=== PATIENT | female | born 1950 | race Caucasian/White ===

== ENCOUNTER → 2018-03-07 11:12 | Outpatient (CLI) | payer MEDICARE, OTHER, SELFPAY ==
[2018-03-07 12:11] LABS: Absolute Neutrophil Count 2.5 X10^3/uL (2.0-7.7); Basophil# 0.06 X10^3/uL; Basophil% 1.5 % (0-1); Eosinophil# 0.12 X10^3/uL; Eosinophils% 3.1 % (0-5); Hematocrit 39.9 % (37-47); Hemoglobin 12.7 g/dl (12.0-15.0); Lymphocyte % 23.1 % (19-41); Mean Corp Hgb Conc 31.8 g/gl (32-36); Mean Corpuscular Hgb 27.9 pg (27.0-32.0); Mean Corpuscular Volume 87.7 fL (81-99); Mean Platelet Vol. 11.2 fl (6.2-12.0); Monocyte# 0.32 X10^3/uL; Monocyte% 8.2 % (0-10); Neutrophil # 2.48 X10^3/uL (2.7-7.7); Neutrophil % 63.8 % (47-70); Platelet Count 308 K/mm3 (150-450); RBC Distribution Width CV 16.9 % (11.6-14.6); Red Blood Count 4.55 M/mm3 (4.2-5.4); White Blood Count 3.9 K/mm3 (4.4-11.0)
[2018-03-07 12:13] LABS: POSITIVE COUNT NO; POSITIVE DIFFERENTIAL NO; POSITIVE MORPHOLOGY NO
[2018-03-07 12:49] LABS: ALB/GLOB Ratio 0.9 RATIO (0.9-2.4); AST(SGOT) 18 U/L (15-37); Alanine Aminotransfer ALT/SGPT 19 U/L (13-56); Albumin, Serum 3.7 g/dL (3.2-5.0); Alkaline Phosphatase 75 U/L (45-117); Anion Gap 12 (5-15); BUN 12 mg/dL (7-18); Calcium,Total 8.5 mg/dL (8.5-10.1); Chloride 109 mmol/L (98-107); Creatinine, Serum 1.09 mg/dL (0.55-1.02); EST Glomerular Filtration Rate 53 mL/min (>60); Est Glom Filt Rate - Afr Amer 64 mL/min (>60); Glucose 154 mg/dL (74-106); Potassium 4.3 mmol/L (3.5-5.1); Protein, Total 7.7 g/dL (6.4-8.2); Sodium Level 142 mmol/L (136-145)
== END ==
PROVIDERS: Family Provider Family Medicine; PCP Family Medicine; Visit Provider Internal Medicine Rheumatology
DX: M06.4 Inflammatory polyarthropathy (principal); M35.1 Other overlap syndromes; M25.551 Pain in right hip; M18.12 Unilateral primary osteoarthritis of first carpometacarpal joint, left hand; M17.0 Bilateral primary osteoarthritis of knee; M21.40 Flat foot [pes planus] (acquired), unspecified foot; K21.9 Gastro-esophageal reflux disease without esophagitis; I10 Essential (primary) hypertension; F41.9 Anxiety disorder, unspecified; E03.9 Hypothyroidism, unspecified; M18.9 Osteoarthritis of first carpometacarpal joint, unspecified; Z79.899 Other long term (current) drug therapy
CPT/HCPCS: 36415; 80053; 85025

== ENCOUNTER → 2018-06-13 13:26 | Outpatient (CLI) | payer MEDICARE, OTHER, SELFPAY ==
[2018-06-13 15:49] LABS: ALB/GLOB Ratio 1.1 RATIO (0.9-2.4); AST(SGOT) 24 U/L (15-37); Alanine Aminotransfer ALT/SGPT 29 U/L (13-56); Albumin, Serum 3.9 g/dL (3.2-5.0); Alkaline Phosphatase 73 U/L (45-117); Anion Gap 10 (5-15); BUN 17 mg/dL (7-18); BUN/Creat Ratio 14.4 RATIO (10-20); Calcium,Total 9.1 mg/dL (8.5-10.1); Chloride 107 mmol/L (98-107); Creatinine, Serum 1.18 mg/dL (0.55-1.02); EST Glomerular Filtration Rate 48 mL/min (>60); Est Glom Filt Rate - Afr Amer 58 mL/min (>60); Globulin 3.5 g/dL (2.2-4.2); Glucose 129 mg/dL (74-106); Potassium 4.3 mmol/L (3.5-5.1); Protein, Total 7.4 g/dL (6.4-8.2); Sodium Level 142 mmol/L (136-145)
[2018-06-13 18:06] LABS: Absolute Lymphocyte Count 1.27 X10^3/ul (0.83-4.51); Absolute Neutrophil Count 3.3 X10^3/uL (2.0-7.7); Basophil# 0.05 X10^3/uL; Basophil% 0.9 % (0-1); Eosinophil# 0.21 X10^3/uL; Eosinophils% 3.8 % (0-5); Hematocrit 37.8 % (37-47); Hemoglobin 12.3 g/dl (12.0-15.0); Lymphocyte # 1.27 X10^3/ul (4.0); Lymphocyte % 22.7 % (19-41); Mean Corp Hgb Conc 32.5 g/gl (32-36); Mean Corpuscular Volume 89.2 fL (81-99); Mean Platelet Vol. 12.1 fl (6.2-12.0); Monocyte# 0.73 X10^3/uL; Neutrophil # 3.33 X10^3/uL (2.7-7.7); Neutrophil % 59.4 % (47-70); Platelet Count 309 K/mm3 (150-450); RBC Distribution Width CV 17.7 % (11.6-14.6); RBC Distribution Width SD 57.1 fl (35.1-43.9); Red Blood Count 4.24 M/mm3 (4.2-5.4); White Blood Count 5.6 K/mm3 (4.4-11.0)
[2018-06-13 18:08] LABS: POSITIVE COUNT NO; POSITIVE DIFFERENTIAL NO; POSITIVE MORPHOLOGY NO
== END ==
PROVIDERS: Family Provider Family Medicine; PCP Family Medicine; Visit Provider Internal Medicine Rheumatology
DX: M06.4 Inflammatory polyarthropathy (principal); M35.1 Other overlap syndromes; M18.12 Unilateral primary osteoarthritis of first carpometacarpal joint, left hand; M17.0 Bilateral primary osteoarthritis of knee; M21.40 Flat foot [pes planus] (acquired), unspecified foot; K21.9 Gastro-esophageal reflux disease without esophagitis; I10 Essential (primary) hypertension; F41.9 Anxiety disorder, unspecified; E03.9 Hypothyroidism, unspecified; I48.92 Unspecified atrial flutter; M18.9 Osteoarthritis of first carpometacarpal joint, unspecified; Z79.899 Other long term (current) drug therapy
CPT/HCPCS: 36415; 80053; 85025

== ENCOUNTER → 2018-08-10 09:57 | Outpatient (CLI) | payer MEDICARE, OTHER, SELFPAY ==
[2018-08-10 11:43] LABS: Absolute Neutrophil Count 3.9 X10^3/uL (2.0-7.7); Basophil# 0.03 X10^3/uL; Basophil% 0.5 % (0-1); Eosinophil# 0.27 X10^3/uL; Eosinophils% 4.7 % (0-5); Hematocrit 40.5 % (37-47); Hemoglobin 12.8 g/dl (12.0-15.0); Lymphocyte % 17.6 % (19-41); Mean Corp Hgb Conc 31.6 g/gl (32-36); Mean Corpuscular Volume 91.8 fL (81-99); Mean Platelet Vol. 11.1 fl (6.2-12.0); Monocyte# 0.49 X10^3/uL; Monocyte% 8.6 % (0-10); Neutrophil # 3.89 X10^3/uL (2.7-7.7); Neutrophil % 68.4 % (47-70); Platelet Count 244 K/mm3 (150-450); RBC Distribution Width CV 16.1 % (11.6-14.6); RBC Distribution Width SD 53.9 fl (35.1-43.9); Red Blood Count 4.41 M/mm3 (4.2-5.4); White Blood Count 5.7 K/mm3 (4.4-11.0)
[2018-08-10 11:44] LABS: POSITIVE COUNT NO; POSITIVE DIFFERENTIAL NO; POSITIVE MORPHOLOGY NO
[2018-08-10 12:00] LABS: ALB/GLOB Ratio 0.9 RATIO (0.9-2.4); AST(SGOT) 11 U/L (15-37); Alanine Aminotransfer ALT/SGPT 20 U/L (13-56); Albumin, Serum 3.5 g/dL (3.2-5.0); Alkaline Phosphatase 67 U/L (45-117); Anion Gap 11 (5-15); BUN 16 mg/dL (7-18); BUN/Creat Ratio 14.8 RATIO (10-20); Calcium,Total 8.9 mg/dL (8.5-10.1); Chloride 106 mmol/L (98-107); Creatinine, Serum 1.08 mg/dL (0.55-1.02); EST Glomerular Filtration Rate 53 mL/min (>60); Est Glom Filt Rate - Afr Amer 65 mL/min (>60); Globulin 3.7 g/dL (2.2-4.2); Glucose 154 mg/dL (74-106); Potassium 3.9 mmol/L (3.5-5.1); Protein, Total 7.2 g/dL (6.4-8.2); Sodium Level 139 mmol/L (136-145)
== END ==
PROVIDERS: Family Provider Family Medicine; PCP Family Medicine; Visit Provider Internal Medicine Rheumatology
DX: M06.4 Inflammatory polyarthropathy (principal); M35.1 Other overlap syndromes; M18.12 Unilateral primary osteoarthritis of first carpometacarpal joint, left hand; M17.0 Bilateral primary osteoarthritis of knee; M21.40 Flat foot [pes planus] (acquired), unspecified foot; K21.9 Gastro-esophageal reflux disease without esophagitis; I10 Essential (primary) hypertension; F41.9 Anxiety disorder, unspecified; E03.9 Hypothyroidism, unspecified; I48.92 Unspecified atrial flutter; M18.9 Osteoarthritis of first carpometacarpal joint, unspecified; Z79.899 Other long term (current) drug therapy
CPT/HCPCS: 36415; 80053; 85025

== ENCOUNTER → 2018-11-09 11:03 | Outpatient (CLI) | payer MEDICARE, OTHER, SELFPAY ==
[2018-11-09 11:55] LABS: Absolute Lymphocyte Count 1.14 X10^3/ul (0.83-4.51); Absolute Neutrophil Count 5.7 X10^3/uL (2.0-7.7); Basophil# 0.08 X10^3/uL; Eosinophil# 0.25 X10^3/uL; Eosinophils% 3.1 % (0-5); Hematocrit 42.3 % (37-47); Hemoglobin 13.9 g/dl (12.0-15.0); Lymphocyte # 1.14 X10^3/ul (4.0); Lymphocyte % 14.1 % (19-41); Mean Corp Hgb Conc 32.9 g/gl (32-36); Mean Corpuscular Hgb 30.8 pg (27.0-32.0); Mean Corpuscular Volume 93.6 fL (81-99); Mean Platelet Vol. 10.9 fl (6.2-12.0); Monocyte# 0.91 X10^3/uL; Monocyte% 11.3 % (0-10); Neutrophil # 5.69 X10^3/uL (2.7-7.7); Neutrophil % 70.4 % (47-70); Platelet Count 285 K/mm3 (150-450); RBC Distribution Width SD 50.1 fl (35.1-43.9); Red Blood Count 4.52 M/mm3 (4.2-5.4); White Blood Count 8.1 K/mm3 (4.4-11.0)
[2018-11-09 12:00] LABS: POSITIVE COUNT NO; POSITIVE DIFFERENTIAL NO; POSITIVE MORPHOLOGY NO
[2018-11-09 12:23] LABS: AST(SGOT) 11 U/L (15-37); Alanine Aminotransfer ALT/SGPT 19 U/L (13-56); Albumin, Serum 3.7 g/dL (3.2-5.0); Alkaline Phosphatase 69 U/L (45-117); Anion Gap 8 (5-15); BUN 14 mg/dL (7-18); BUN/Creat Ratio 13.9 RATIO (10-20); Calcium,Total 9.1 mg/dL (8.5-10.1); Chloride 106 mmol/L (98-107); Creatinine, Serum 1.01 mg/dL (0.55-1.02); EST Glomerular Filtration Rate 58 mL/min (>60); Est Glom Filt Rate - Afr Amer 70 mL/min (>60); Globulin 3.8 g/dL (2.2-4.2); Glucose 83 mg/dL (74-106); Potassium 4.6 mmol/L (3.5-5.1); Protein, Total 7.5 g/dL (6.4-8.2); Sodium Level 142 mmol/L (136-145)
--- OUTSIDE RECORDS SUMMARY | 2018-12-26 13:58 | XMS RPT_ITS ---
:1950 Author Organization OHIP Support Name Relationship Address Phone LORENZO WANDA Unavailable Unavailable + [place], [place] R Unavailable Unavailable Unavailable CHERRIE CHAVEZ Unavailable [address] + [place] [address] Helen Lagunas Unavailable Unavailable + Cherrie Chavez Unavailable Unavailable + LORENZO, WANDA Unavailable Unavailable + [place], [place] R Unavailable Unavailable Unavailable CHERRIE CHAVEZ Unavailable [address] + [place] [address] ARHER, WANDA Unavailable Unavailable + ARHER, WANDA Unavailable Unavailable Unavailable ARHER, WANDA Unavailable Unavailable + ARHER, WANDA Unavailable Unavailable + ARHER, WANDA Unavailable Unavailable Unavailable ARHER, WANDA Unavailable Unavailable + LORENZO, WANDA Unavailable . + [place], [place] . R Unavailable Unavailable Unavailable CHERRIE CHAVEZ Unavailable [address] + [place] [address] LORENZO, WANDA Unavailable . + [place], [place] . R Unavailable Unavailable Unavailable CHERRIE CHAVEZ Unavailable [address] + [place] [address] ARHER, WANDA Unavailable Unavailable + ARHER, WANDA Unavailable Unavailable Unavailable ARHER, WANDA Unavailable Unavailable + Care Team Providers Name Role Phone Patricia Dent Attending Unavailable Patricia Dent Referring Unavailable Rakesh Garzon Primary Care Unavailable Patricia Dent Attending Unavailable Vellanki, Patricia Referring Unavailable Bob, Rakesh Primary Care Unavailable Vellanki, Patricia Attending Unavailable Vellanbeata, Patricia Referring Unavailable Surprice, Rakesh Primary Care Unavailable Vellanki, Patricia Attending Unavailable Vellanki, Patricia Referring Unavailable Bob, Rakesh Primary Care Unavailable MAIKOL HERRERA Attending Unavailable Bob, Rakesh Attending Unavailable Surprice, Rakesh Referring Unavailable Surprice, Rakesh Primary Care Unavailable KORIN CHILD, SVEN Attending Unavailable SURPRICE, RAKESH Primary Care Unavailable KORIN CHILD, SVEN Attending Unavailable SURPRICE, RAKESH Primary Care Unavailable KORIN CHILD, SVEN Attending Unavailable SURPRICE, RAKESH Primary Care Unavailable PROBLEMS PROBLEMS DATE TYPE CONDITION / CODE ATTENDING STATUS SOURCE 11/09/2018 Unknown M06.4 - Inflammatory Vellanki, Active [place] polyarthropathy / [facility] M06.4(ICD-10) Hospital Repository 11/09/2018 Unknown Z79.899 - Other long Vellanki, Active [place] term (current) drug [facility] therapy / Hospital Z79.899(ICD-10) Repository 11/09/2018 Unknown 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, 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 / [facility] M35.1(ICD-10) Hospital Repository 11/09/2018 Unknown M18.12 - Unilateral Vellanki, Active [place] primary [facility] osteoarthritis of Hospital first Repository carpometacarpal joint, left hand / M18.12(ICD-10) 11/09/2018 Unknown M15.9 - Vellanki, Active [place] Polyosteoarthritis, [facility] unspecified / Hospital M15.9(ICD-10) Repository 11/09/2018 Unknown M17.0 - Bilateral Vellanki, Active [place] primary [facility] osteoarthritis of Hospital knee / M17.0(ICD-10) Repository 11/09/2018 Unknown M21.40 - Flat foot Vellanki, Active [place] [pes planus] [facility] (acquired), Hospital unspecified foot / Repository M21.40(ICD-10) 11/09/2018 Unknown K21.9 - Vellanki, Active [place] Gastro-esophageal [facility] reflux disease Hospital without esophagitis Repository / K21.9(ICD-10) 11/09/2018 Unknown I10 - Essential Vellanki, Active [place] (primary) [facility] hypertension / Hospital I10(ICD-10) Repository 09/05/2018 Admitting Encntr screen Rakesh Garzon [facility] Crunched Diagnosis mammogram for System malignant neoplasm Repository of breast / Z12.31(ICD-10) 09/05/2018 Admitting Asymptomatic Rakesh Garzon [facility] Diagnosis menopausal state / System Z78.0(ICD-10) Repository 06/13/2018 Unknown F41.9 - Anxiety [place]i, Active [place] disorder, [facility] unspecified / Hospital F41.9(ICD-10) Repository 06/13/2018 Unknown E03.9 - Vellanki, Active [place] Hypothyroidism, [facility] unspecified / Hospital E03.9(ICD-10) Repository 06/13/2018 Unknown M18.9 - Vellanki, Active [place] Osteoarthritis of [facility] Hospital carpometacarpal Repository joint, unspecified / M18.9(ICD-10) 06/13/2018 Unknown I48.92 - Unspecified Vellanki, Active [place] atrial flutter / [facility] I48.92(ICD-10) Hospital Repository 03/07/2018 Unknown M25.551 - Pain in Vellanki, Active [place] right hip / [facility] M25.551(ICD-10) Hospital Repository PROCEDURES PROCEDURES No Procedure Records FoundRESULTS RESULTS CBC W/DIFF, AUTOMATED Collected: 11/09/2018 Status: F Source: [place] [facility] TYPE CODE TESTS RESULT OUT OF RANGE REFERENCE UNITS LAB L100.1000 4.4-11.0 K/mm3 Normal WBC 8.1 LAB L100.1200 4.2-5.4 M/mm3 Normal RBC 4.52 LAB L100.1300 12.0-15.0 g/dl Normal HGB 13.9 LAB L100.1400 37-47 % Normal HCT 42.3 LAB L100.1500 81-99 fL Normal MCV 93.6 LAB L100.1600 27.0-32.0 pg Normal MCH 30.8 LAB L100.1700 32-36 g/gl Normal MCHC 32.9 LAB L100.1810 11.6-14.6 % High RDW CV 15.0 LAB L100.1820 35.1-43.9 fl High RDW SD 50.1 LAB L100.1900 150-450 K/mm3 Normal PLT 285 LAB L100.2000 6.2-12.0 fl Normal MPV 10.9 LAB L100.2100 47-70 % High NEUT% 70.4 LAB L100.2200 19-41 % Low LY% 14.1 LAB L100.2300 0-10 % High MONO% 11.3 LAB L100.2400 0-5 % Normal EO% 3.1 LAB L100.2500 0-1 % Normal BASO% 1.0 LAB L100.2550 0.0-0.9 % Normal IM GRAN % 0.100 Result Comment: IG% - Immature Granulocytes (promyelocytes, myelocytes and metamyelocytes) > 1% indicates that a LEFT SHIFT is Present. LAB L100.2620 2.0-7.7 X10 3/uL Normal Absolute Neut 5.7 LAB L100.2720 0.83-4.51 X10 3/ul Normal Absolute Lymph 1.14 Performed By: #### L100.0100 #### [facility] [address] [place], [address] COMPREHENSIVE METABOLIC Collected: 11/09/2018 Status: F Source: [facility] 11:10 AM [facility] REPOSITORY TYPE CODE TESTS RESULT OUT OF RANGE REFERENCE UNITS LAB L501.0100 74-106 mg/dL Normal GLU 83 Result Comment: Please note revised GLUCOSE reference range effective 2017. LAB L501.1000 7-18 mg/dL Normal BUN 14 LAB L501.1100 0.55-1.02 mg/dL Normal CREAT,SERUM 1.01 Result Comment: The validity of the calculated GFR AND GFRAA in patients over 70 years has not been determined. Clinical correlation is essential. LAB L501.1110 >60 mL/min Low EST GFR 58 Result Comment: Non- GFR Calc LAB L501.1115 >60 mL/min Normal EST GFR - AA 70 Result Comment: GFR Calc LAB L501.1300 10-20 RATIO Normal BUN/CRE 13.9 LAB L501.1500 6.4-8.2 g/dL T Normal PROT 7.5 LAB L501.1800 3.2-5.0 g/dL Normal ALB 3.7 LAB L501.1950 2.2-4.2 g/dL Normal GLOB 3.8 LAB L501.2000 0.9-2.4 RATIO Normal A/G 1.0 LAB L501.2200 8.5-10.1 mg/dL CA Normal 9.1 LAB L501.4100 15-37 U/L Low AST 11 LAB L501.4305 45-117 U/L Normal ALK P 69 LAB L501.4405 13-56 U/L Normal ALT 19 LAB L501.4600 0.20-1.00 mg/dL T Normal BILI 0.60 LAB L501.5300 136-145 mmol/L NA Normal 142 LAB L501.5600 3.5-5.1 mmol/L K Normal 4.6 LAB L501.5900 98-107 mmol/L CL Normal 106 LAB L501.6100 21.0-32.0 mmol/L Normal CO2 28.0 LAB L501.6200 5-15 Normal GAP 8 Performed By: #### L500.4050 #### [facility] [address] [place], [address] MG BREAST TOMOSYNTHESIS Observed: 09/05/2018 Status: F Source: [facility] SCR BL 12:00 AM SYSTEM REPOSITORY Patient Name: CECE LAGUNAS Mammography Exam Date/Time 09/05/2018 13:04:11 EDT Exam MG Breast Tomosynthesis Scr Ordering Physician MD GARZON JOHN MICHAEL Accession Number [id number] CPT4 Codes 83824 (MG Breast Tomosynthesis Scr Bl), 35085 (MG MAMMO 2D SCREENING) Reason For Exam screening Report PATIENT HISTORY: Patient is postmenopausal. Family history of prostate cancer at age 85 in father. Taking unspecified hormones beginning at age 35. Patient is a former smoker. Patient's BMI is 33.1. TIME SINCE LAST MAMMOGRAM: Last mammogram was performed 2 years and 5 months ago. REASON FOR EXAM: screening, asymptomatic. PROCEDURE: MG BREAST TOMOSYNTHESIS BL SCR: SEPTEMBER 05, 2018 - 2D/3D Procedure 3D Bilateral CC and MLO view(s) were taken. 2D Bilateral CC and MLO view(s) were taken. Prior study comparison: March 23, 2016, bilateral MG breast tomosynthesis bl scr performed at [facility]. TISSUE DENSITY: There are scattered fibroglandular densities. 2D digital mammography and tomosynthesis imaging were performed and reviewed with CAD. ASSESSMENT: Category 1 Negative No mammographic evidence of malignancy. RECOMMENDATION: Routine screening mammogram of both breasts in 1 year. . Report Dictated on Cancer Risk Assessment: This risk assessment is based on patient provided information collected in a risk survey taken at the time of this examination. Lifetime breast cancer risk: 6.2% - If greater than or equal to 20%, consider annual mammogram and annual screening Breast MRI or follow up in high risk clinic. Is the patient at elevated risk based on the HBOC criteria? No (Hereditary Breast and Ovarian Cancer) - If yes, consider genetic counseling and testing with high risk follow up. HNPCC mutation risk (Agarwal Syndrome): 1% - if greater than or equal to 5%, consider genetic counseling, testing and screening colonoscopy. Final Signed Date and Time: 09/05/2018 2:18 pm Signed by: MD CONNELLY LAURA CBC W/DIFF, AUTOMATED Collected: 08/10/2018 Status: F Source: [place] 10:02 AM [facility] REPOSITORY TYPE CODE TESTS RESULT OUT OF RANGE REFERENCE UNITS LAB L100.1000 4.4-11.0 K/mm3 Normal WBC 5.7 LAB L100.1200 4.2-5.4 M/mm3 Normal RBC 4.41 LAB L100.1300 12.0-15.0 g/dl Normal HGB 12.8 LAB L100.1400 37-47 % Normal HCT 40.5 LAB L100.1500 81-99 fL Normal MCV 91.8 LAB L100.1600 27.0-32.0 pg Normal MCH 29.0 LAB L100.1700 32-36 g/gl Low MCHC 31.6 LAB L100.1810 11.6-14.6 % High RDW CV 16.1 LAB L100.1820 35.1-43.9 fl High RDW SD 53.9 LAB L100.1900 150-450 K/mm3 Normal PLT 244 LAB L100.2000 6.2-12.0 fl Normal MPV 11.1 LAB L100.2100 47-70 % Normal NEUT% 68.4 LAB L100.2200 19-41 % Low LY% 17.6 LAB L100.2300 0-10 % Normal MONO% 8.6 LAB L100.2400 0-5 % Normal EO% 4.7 LAB L100.2500 0-1 % Normal BASO% 0.5 LAB L100.2550 0.0-0.9 % Normal IM GRAN % 0.200 Result Comment: IG% - Immature Granulocytes (promyelocytes, myelocytes and metamyelocytes) > 1% indicates that a LEFT SHIFT is Present. LAB L100.2620 2.0-7.7 X10 3/uL Normal Absolute Neut 3.9 LAB L100.2720 0.83-4.51 X10 3/ul Normal Absolute Lymph 1.00 Performed By: #### L100.0100 #### [facility] [address] [place], [address] COMPREHENSIVE METABOLIC Collected: 08/10/2018 Status: F Source: [facility] 10:02 AM [facility] REPOSITORY TYPE CODE TESTS RESULT OUT OF RANGE REFERENCE UNITS LAB L501.0100 74-106 mg/dL High GLU 154 Result Comment: Fasting Glucose result greater than or equal to 126 mg/dL suggests DIABETES MELLITUS per A.D.A. criteria. Please note revised GLUCOSE reference range effective 2017. LAB L501.1000 7-18 mg/dL Normal BUN 16 LAB L501.1100 0.55-1.02 mg/dL High CREAT,SERUM 1.08 Result Comment: The validity of the calculated GFR AND GFRAA in patients over 70 years has not been determined. Clinical correlation is essential. LAB L501.1110 >60 mL/min Low EST GFR 53 Result Comment: Non- GFR Calc LAB L501.1115 >60 mL/min Normal EST GFR - AA 65 Result Comment: GFR Calc LAB L501.1300 10-20 RATIO Normal BUN/CRE 14.8 LAB L501.1500 6.4-8.2 g/dL T Normal PROT 7.2 LAB L501.1800 3.2-5.0 g/dL Normal ALB 3.5 LAB L501.1950 2.2-4.2 g/dL Normal GLOB 3.7 LAB L501.2000 0.9-2.4 RATIO Normal A/G 0.9 LAB L501.2200 8.5-10.1 mg/dL CA Normal 8.9 LAB L501.4100 15-37 U/L Low AST 11 LAB L501.4305 45-117 U/L Normal ALK P 67 LAB L501.4405 13-56 U/L Normal ALT 20 LAB L501.4600 0.20-1.00 mg/dL T Normal BILI 0.40 LAB L501.5300 136-145 mmol/L NA Normal 139 LAB L501.5600 3.5-5.1 mmol/L K Normal 3.9 LAB L501.5900 98-107 mmol/L CL Normal 106 LAB L501.6100 21.0-32.0 mmol/L Normal CO2 22.0 LAB L501.6200 5-15 Normal GAP 11 Performed By: #### L500.4050 #### [facility] [address] [place], [address] [facility] OFFICE-PROGRESS Observed: 08/02/2018 Status: F Source: [facility] NOTES-PROVIDER 10:52 AM [facility] REPOSITORY Patient: CECE LAGUNAS Age: 67 years Sex: Female : 1950 Associated Diagnoses: None Author: KORIN CHILD, [facility] Visit Information Visit type: Scheduled follow-up. Accompanied by: No one. Source of history: Self. History limitation: None. Chief Complaint History of Present Illness This is a follow-up visit for Cece for atrial lesion/flutter. she weighs 177 pounds and she is trying to lose weight. 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 Her right hip is bothering her and she thinks it may need to be replaced. No chest pain no lightheadedness no dizziness no palpitations. Patient had left knee replacement in the past. Carlos Manuel pedro has rheumatoid arthritis and she seems to be stable. She is known to have normal coronary arteries. Blood pressure 131/70. Review of Systems Constitutional: Negative. Eye: Negative. Ear/Nose/Mouth/Throat: Negative. Respiratory: No shortness of breath, No cough, No wheezing. Cardiovascular: No chest pain, No palpitations, No peripheral edema. Gastrointestinal: No nausea, No vomiting, No heartburn, No abdominal pain. Genitourinary: Negative. Hematology/Lymphatics: Negative. Endocrine: Negative. Immunologic: Negative. Musculoskeletal: Negative. Integumentary: Negative. Psychiatric: Negative. Health Status Allergies: Allergic Reactions (All) Severity Not Documented Penicillins- No reactions were documented. Sulfa drugs- No reactions were documented., Allergies (2) Active Reaction penicillins None Documented sulfa drugs None Documented Current medications: (Selected) Prescriptions Prescribed Metoprolol Succinate ER 25 mg oral tablet, extended release: See Instructions, TAKE 1 TABLET EVERY DAY, 90 TB, 3 Refill(s) Documented Medications Documented CeleXA 40 mg oral tablet: 40 mg, 1 tabs, ORAL, DAILY, 90 tabs, 0 Refill(s) Norvasc 10 mg oral tablet: 10 mg, 1 tabs, ORAL, DAILY, 90 tabs, 0 Refill(s) Synthroid 200 mcg (0.2 mg) oral tablet: 200 mcg, 1 tabs, ORAL, DAILY, 90 tabs, 0 Refill(s) Zyloprim 300 mg oral tablet: 300 mg, 1 tabs, ORAL, DAILY, 30 tabs, 0 Refill(s) folic acid 1 mg oral tablet: 1 mg, 1 tabs, ORAL, DAILY, 90 tabs, 0 Refill(s) leucovorin 15 mg oral tablet: 15 mg = 1 tabs, ORAL, WEDNESDAY, 24 tabs, 0 Refill(s) leucovorin 15 mg oral tablet: mg, tabs, ORAL, [id number], 0 Refill(s) methotrexate 2.5 mg oral tablet: 17.5 mg = 7 tabs, ORAL, WEDNESDAY, 0 Refill(s) pantoprazole 40 mg oral delayed release tablet: 40 mg = 1 tabs, ORAL, DAILY, 90 tabs, 0 Refill(s) Problem list: Active Problems (9) Arthritis Atrial flutter Dyslipidemia Gout Graves disease Hypertension Hypothyroidism Peptic ulcer Rheumatoid arthritis of hand without organ or system involvement with positive rheumatoid factor Histories Past Medical History: No qualifying data available Family History: Father Bladder cancer Mother Heart attack.... Stroke.. Procedure history: left knee replacment in the month of 10/2017 at 66 Years. knee replacement. spinal fusion. Social History Social & Psychosocial Habits Alcohol 05/21/2016 Risk Assessment: Denies Alcohol Use Other 05/21/2016 Name: TEODORO Comment: 1-2 CUPS COFFEE DAILY - 05/21/2016 09:50 - Samantha Wiseman MA Substance Abuse 05/21/2016 Risk Assessment: Denies Substance Abuse Tobacco 05/21/2016 Use: Former smoker Comment: QUITE 25 YEARS AGO - 05/21/2016 09:49 - Samantha Wiseman MA . Physical Examination No qualifying data available. VS/Measurements Documented vital signs: Blood Pressure ( Systolic 131 mmHg, Diastolic 70 mmHg ) General: Alert and oriented, No acute distress. Eye: Normal conjunctiva, Vision unchanged. HENT: Normal hearing. Neck: Supple, Non-tender, No carotid bruit, No jugular venous distention, No lymphadenopathy. Respiratory: Lungs are clear to auscultation, Breath sounds are equal, Symmetrical chest wall expansion. Cardiovascular: Normal rate, No gallop, Good pulses equal in all extremities, Normal peripheral perfusion, No edema. Bruit: None. Gastrointestinal: Soft, Non-tender, Normal bowel sounds. Genitourinary: No costovertebral angle tenderness. Musculoskeletal: No tenderness, No swelling. Integumentary: Warm, Dry. Neurologic: Alert, Normal sensory, Normal motor function, Cranial Nerves II-XII are grossly intact. Review / Management No qualifying data available Impression and Plan 1.Status post A Flutter and now in sinus. 2.Hypertension: under control 3.Hypothyroidism 4.Rheumatoid arthritis: stable 5.Normal coronaries 6.Continue current medications. 7.Follow up in six months 8.Copy to Dr Garzon. PROVIDER LETTER - Observed: 08/02/2018 Status: F Source: [facility] 10:51 AM [facility] REPOSITORY RAKESH GARZON, [facility] [address] [place] [address] RE: CECE JANNETH - 1950 07/27/2018 Dear RAKESH GARZON This document is confidential and intended solely for the use of the individual or entity to which they are addressed. If you are not the named addressee, please disregard and do not disseminate, distr ibute or copy this information. If you are not the intended recipient you are notified that any disclosure of this information and its contents are strictly prohibited. If you have any questions about this document, please contact the office. Sincerely, Ivone CARMICHAEL, Samantha Reyna [facility] The following document(s) were included in the letter: July 27, 2018 08:58:00 EDT - (07/27/2018) Cardiiology Office Notes COMPREHENSIVE METABOLIC Collected: 06/13/2018 Status: F Source: [place] [facility] 1:39 PM [facility] REPOSITORY TYPE CODE TESTS RESULT OUT OF RANGE REFERENCE UNITS LAB L501.0100 74-106 mg/dL High GLU 129 Result Comment: Fasting Glucose result greater than or equal to 126 mg/dL suggests DIABETES MELLITUS per A.D.A. criteria. Please note revised GLUCOSE reference range effective 2017. LAB L501.1000 7-18 mg/dL Normal BUN 17 LAB L501.1100 0.55-1.02 mg/dL High CREAT,SERUM 1.18 Result Comment: The validity of the calculated GFR AND GFRAA in patients over 70 years has not been determined. Clinical correlation is essential. LAB L501.1110 >60 mL/min Low EST GFR 48 Result Comment: Non- GFR Calc LAB L501.1115 >60 mL/min Low EST GFR - AA 58 Result Comment: GFR Calc LAB L501.1300 10-20 RATIO Normal BUN/CRE 14.4 LAB L501.1500 6.4-8.2 g/dL T Normal PROT 7.4 LAB L501.1800 3.2-5.0 g/dL Normal ALB 3.9 LAB L501.1950 2.2-4.2 g/dL Normal GLOB 3.5 LAB L501.2000 0.9-2.4 RATIO Normal A/G 1.1 LAB L501.2200 8.5-10.1 mg/dL CA Normal 9.1 LAB L501.4100 15-37 U/L Normal AST 24 LAB L501.4305 45-117 U/L Normal ALK P 73 LAB L501.4405 13-56 U/L Normal ALT 29 LAB L501.4600 0.20-1.00 mg/dL T Normal BILI 0.40 LAB L501.5300 136-145 mmol/L NA Normal 142 LAB L501.5600 3.5-5.1 mmol/L K Normal 4.3 LAB L501.5900 98-107 mmol/L CL Normal 107 LAB L501.6100 21.0-32.0 mmol/L Normal CO2 25.0 LAB L501.6200 5-15 Normal GAP 10 Performed By: #### L500.4050 #### [facility] [place], [address] CBC W/DIFF, AUTOMATED Collected: 06/13/2018 Status: F Source: [place] 1:39 PM [facility] REPOSITORY TYPE CODE TESTS RESULT OUT OF RANGE REFERENCE UNITS LAB L100.1000 4.4-11.0 K/mm3 Normal WBC 5.6 LAB L100.1200 4.2-5.4 M/mm3 Normal RBC 4.24 LAB L100.1300 12.0-15.0 g/dl Normal HGB 12.3 LAB L100.1400 37-47 % Normal HCT 37.8 LAB L100.1500 81-99 fL Normal MCV 89.2 LAB L100.1600 27.0-32.0 pg Normal MCH 29.0 LAB L100.1700 32-36 g/gl Normal MCHC 32.5 LAB L100.1810 11.6-14.6 % High RDW CV 17.7 LAB L100.1820 35.1-43.9 fl High RDW SD 57.1 LAB L100.1900 150-450 K/mm3 Normal PLT 309 LAB L100.2000 6.2-12.0 fl High MPV 12.1 LAB L100.2100 47-70 % Normal NEUT% 59.4 LAB L100.2200 19-41 % Normal LY% 22.7 LAB L100.2300 0-10 % High MONO% 13.0 LAB L100.2400 0-5 % Normal EO% 3.8 LAB L100.2500 0-1 % Normal BASO% 0.9 LAB L100.2550 0.0-0.9 % Normal IM GRAN % 0.200 Result Comment: IG% - Immature Granulocytes (promyelocytes, myelocytes and metamyelocytes) > 1% indicates that a LEFT SHIFT is Present. LAB L100.2620 2.0-7.7 X10 3/uL Normal Absolute Neut 3.3 LAB L100.2720 0.83-4.51 X10 3/ul Normal Absolute Lymph 1.27 Performed By: #### L100.0100 #### [facility] [address] [place], [address] PROGRESS Observed: 03/25/2018 Status: COMPLETED Source: [place] 12:14 PM [facility] [place] REPOSITORY HNO ID: [id number] Author: Maikol Herrera Service: (none) Author Type: Physician Type: Progress Notes Filed: 03/25/2018 12:20 PM Note Text: s/p ?bilateral medial and LATERAL permanent TARSORRHAPHY 06/03/17. AT's prn OU. ?Pataday prn OU. ?Butch prn OU. ?Bothered by bump RLL. A/P: 1. Thyroid eye disease s/p ?bilateral medial and?LATERAL permanent TARSORRHAPHY 06/03/17 Doing well without complaints. ? 2. Lesion Right lower lid x 3 wks Irritated rll medially bulbar conj small pyogenic granuloma recc warm compresses 15 min twice a day then lid scrubs with dilute baby shampoo maxitrol twice a day to affected lid, do not use longer than 2 wks as can cause intraocular pressure elevation 3. Thyroid eye disease Diagnosis: graves 30 years ago Eye symptoms: same time of diagnosis H/o upper lid retraction surgery [address] Burroughs Today scar superiorly at 12 oclock, no signficiant Superficial punctate keratopathy (SPK) 1mm lag right eye (has contour issue Right upper lid--more peaked centrally) If exposure would expect more inferior Superficial punctate keratopathy (SPK). Not seen today MRI orbits 11/17/16: reviewed large inferior rectus both eyes and mild enlargement medial rectus both eyes, + fat enlargement Defers decompression Already had Bilateral upper lids retraction surgery Cont lubrication with art tears and ointment at night; can use moisture goggles at night as well Patient in stable phase, no active signs F/u 1 year The documentation for this note was completed by Libra Pascal, COA acting as a scribe for Maikol Herrera MD. The documentation recorded by the scribe accurately reflects the service I personally performed and the decisions made by me. I have confirmed and edited as necessary the relevant ophthalmic history, ROS, and the neuro exam findings as obtained by others. I have seen and examined Cece Lagunas I have discussed the case and the management of this patient's care with the Resident/Fellow, if applicable. I also have reviewed and agree with the assessment and plan as stated above and agree with all of its relevant components. Maikol Herrera MD CBC W/DIFF, AUTOMATED Collected: 03/07/2018 Status: F Source: [place] 11:19 AM [facility] REPOSITORY TYPE CODE TESTS RESULT OUT OF RANGE REFERENCE UNITS LAB L100.1000 4.4-11.0 K/mm3 Low WBC 3.9 LAB L100.1200 4.2-5.4 M/mm3 Normal RBC 4.55 LAB L100.1300 12.0-15.0 g/dl Normal HGB 12.7 LAB L100.1400 37-47 % Normal HCT 39.9 LAB L100.1500 81-99 fL Normal MCV 87.7 LAB L100.1600 27.0-32.0 pg Normal MCH 27.9 LAB L100.1700 32-36 g/gl Low MCHC 31.8 LAB L100.1810 11.6-14.6 % High RDW CV 16.9 LAB L100.1820 35.1-43.9 fl High RDW SD 54.0 LAB L100.1900 150-450 K/mm3 Normal PLT 308 LAB L100.2000 6.2-12.0 fl Normal MPV 11.2 LAB L100.2100 47-70 % Normal NEUT% 63.8 LAB L100.2200 19-41 % Normal LY% 23.1 LAB L100.2300 0-10 % Normal MONO% 8.2 LAB L100.2400 0-5 % Normal EO% 3.1 LAB L100.2500 0-1 % High BASO% 1.5 LAB L100.2550 0.0-0.9 % Normal IM GRAN % 0.300 Result Comment: IG% - Immature Granulocytes (promyelocytes, myelocytes and metamyelocytes) > 1% indicates that a LEFT SHIFT is Present. LAB L100.2620 2.0-7.7 X10 3/uL Normal Absolute Neut 2.5 LAB L100.2720 0.83-4.51 X10 3/ul Normal Absolute Lymph 0.90 Performed By: #### L100.0100 #### [facility] [address] [place], [address] COMPREHENSIVE METABOLIC Collected: 03/07/2018 Status: F Source: [place] 11:19 AM [facility] REPOSITORY TYPE CODE TESTS RESULT OUT OF RANGE REFERENCE UNITS LAB L501.0100 74-106 mg/dL High GLU 154 Result Comment: Fasting Glucose result greater than or equal to 126 mg/dL suggests DIABETES MELLITUS per A.D.A. criteria. Please note revised GLUCOSE reference range effective 2017. LAB L501.1000 7-18 mg/dL Normal BUN 12 LAB L501.1100 0.55-1.02 mg/dL High CREAT,SERUM 1.09 Result Comment: The validity of the calculated GFR AND GFRAA in patients over 70 years has not been determined. Clinical correlation is essential. LAB L501.1110 >60 mL/min Low EST GFR 53 Result Comment: Non- GFR Calc LAB L501.1115 >60 mL/min Normal EST GFR - AA 64 Result Comment: GFR Calc LAB L501.1300 10-20 RATIO Normal BUN/CRE 11.0 LAB L501.1500 6.4-8.2 g/dL T Normal PROT 7.7 LAB L501.1800 3.2-5.0 g/dL Normal ALB 3.7 LAB L501.1950 2.2-4.2 g/dL Normal GLOB 4.0 LAB L501.2000 0.9-2.4 RATIO Normal A/G 0.9 LAB L501.2200 8.5-10.1 mg/dL CA Normal 8.5 LAB L501.4100 15-37 U/L Normal AST 18 LAB L501.4305 45-117 U/L Normal ALK P 75 LAB L501.4405 13-56 U/L Normal ALT 19 Result Comment: Please note revised ALT reference range effective 2017. LAB L501.4600 0.20-1.00 mg/dL Normal T BILI 0.70 LAB L501.5300 136-145 mmol/L Normal NA 142 LAB L501.5600 3.5-5.1 mmol/L Normal K 4.3 LAB L501.5900 98-107 mmol/L High CL 109 LAB L501.6100 21.0-32.0 mmol/L Normal CO2 21.0 LAB L501.6200 5-15 Normal GAP 12 Performed By: #### L500.4050 #### [facility] [address] [place], [address] AMB OFFICE-PROGRESS Observed: 01/05/2018 Status: F Source: [facility] NOTES-PROVIDER 1:28 PM [facility] REPOSITORY Patient: CECE LAGUNAS Age: 67 years Sex: Female : 1950 Associated Diagnoses: None Author: KORIN CHILD, [facility] Visit Information Visit type: Scheduled follow-up. Accompanied by: No one. Source of history: Self. History limitation: None. Chief Complaint 01/04/2018 15:49 EST 6 m check up No problems has had knee replacement on left knee nov 16 History of Present Illness This is a 6 months follow-up visit for Cece for atrial fibrillation/flutter and hypertension. She is doing very well but she weighs 175 pounds and she is trying to lose weight. She had a LEFT knee r eplacement and completed physical therapy. Her rheumatoid arthritis is still fluctuating and currently she takes methotrexate. She is known to have normal coronary arteries. 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 Blood pressure 127/77. She denies chest pain shortness of breath no palpitations lightheadedness. Review of Systems Constitutional: Negative. Eye: Negative. Ear/Nose/Mouth/Throat: Negative. Respiratory: No shortness of breath, No cough, No wheezing. Cardiovascular: No chest pain, No palpitations, No peripheral edema. Gastrointestinal: No nausea, No vomiting, No heartburn, No abdominal pain. Genitourinary: Negative. Hematology/Lymphatics: Negative. Endocrine: Negative. Immunologic: Negative. Musculoskeletal: Negative. Integumentary: Negative. Psychiatric: Negative. Health Status Allergies: Allergic Reactions (All) Severity Not Documented Penicillins- No reactions were documented. Sulfa drugs- No reactions were documented., Allergies (2) Active Reaction penicillins None Documented sulfa drugs None Documented Current medications: (Selected) Prescriptions Prescribed Metoprolol Succinate ER 25 mg oral tablet, extended release: See Instructions, TAKE 1 TABLET EVERY DAY, 90 TB, 3 Refill(s) Documented Medications Documented CeleXA 40 mg oral tablet: 40 mg, 1 tabs, ORAL, DAILY, 90 tabs, 0 Refill(s) Norvasc 10 mg oral tablet: 10 mg, 1 tabs, ORAL, DAILY, 90 tabs, 0 Refill(s) Synthroid 200 mcg (0.2 mg) oral tablet: 200 mcg, 1 tabs, ORAL, DAILY, 90 tabs, 0 Refill(s) Zyloprim 300 mg oral tablet: 300 mg, 1 tabs, ORAL, DAILY, 30 tabs, 0 Refill(s) folic acid 1 mg oral tablet: 1 mg, 1 tabs, ORAL, DAILY, 90 tabs, 0 Refill(s) leucovorin 15 mg oral tablet: mg, tabs, ORAL, [id number], 0 Refill(s) methotrexate 2.5 mg oral tablet: 17.5 mg = 7 tabs, ORAL, WEDNESDAY, 0 Refill(s) pantoprazole 40 mg oral delayed release tablet: 40 mg = 1 tabs, ORAL, DAILY, 90 tabs, 0 Refill(s) Problem list: Active Problems (9) Arthritis Atrial flutter Dyslipidemia Gout Graves disease Hypertension Hypothyroidism Peptic ulcer Rheumatoid arthritis of hand without organ or system involvement with positive rheumatoid factor Histories Past Medical History: No qualifying data available Family History: Father Bladder cancer Mother Heart attack.... Stroke.. Procedure history: left knee replacment in the month of 10/2017 at 66 Years. knee replacement. spinal fusion. Social History Social & Psychosocial Habits Alcohol 05/21/2016 Risk Assessment: Denies Alcohol Use Other 05/21/2016 Name: iGlueFINE Comment: 1-2 CUPS COFFEE DAILY - 05/21/2016 09:50 - Samantha Wiseman MA Substance Abuse 05/21/2016 Risk Assessment: Denies Substance Abuse Tobacco 05/21/2016 Use: Former smoker Comment: QUITE 25 YEARS AGO - 05/21/2016 09:49 - Samantha Wiseman MA Physical Examination Temperature 98.7 (15:51) Systolic Blood Pressure No result Diastolic Blood Pressure No result Pulse 64 (15:51) SpO2 No result Respiratory Rate No result Documented vital signs: Blood Pressure: Systolic 127 mmHg, Diastolic 77 mmHg. General: Alert and oriented, No acute distress. Eye: Normal conjunctiva, Vision unchanged. HENT: Normal hearing. Neck: Supple, Non-tender, No carotid bruit, No jugular venous distention, No lymphadenopathy. Respiratory: Lungs are clear to auscultation, Breath sounds are equal, Symmetrical chest wall expansion. Cardiovascular: Normal rate, No gallop, Good pulses equal in all extremities, Normal peripheral perfusion, No edema. Bruit: None. Gastrointestinal: Soft, Non-tender, Normal bowel sounds. Genitourinary: No costovertebral angle tenderness. Musculoskeletal No tenderness. No swelling. Integumentary: Warm, Dry. Neurologic: Alert, Normal sensory, Normal motor function, Cranial Nerves II-XII are grossly intact. Review / Management No qualifying data available Impression and Plan 1.Status post A Flutter and now in sinus. 2.Hypertension: under control 3.Hypothyroidism 4.Rheumatoid arthritis: stable 5.Normal coronaries 6.Continue current medications. 7.Follow up in six months 8.Copy to Dr Garzon. PROVIDER LETTER - Observed: 01/05/2018 Status: F Source: [facility] 1:28 PM [facility] REPOSITORY RAKESH GARZON, [address] [place] [address] RE: CECE LAGUNAS - 1950 01/04/2018 Dear RAKESH GARZON This document is confidential and intended solely for the use of the individual or entity to which they are addressed. If you are not the named addressee, please disregard and do not disseminate, distr ibute or copy this information. If you are not the intended recipient you are notified that any disclosure of this information and its contents are strictly prohibited. If you have any questions about this document, please contact the office. Sincerely, Samantha Wiseman MA [facility] The following document(s) were included in the letter: January 04, 2018 17:33:00 EST - (01/04/2018) Cardiiology Office Notes ALLERGIES ALLERGIES DATE TYPE / CODE NAME / CODE REACTION SEVERITY SOURCE 12/17/2011 Drug PENICILLINS HIVES [facility] Class/74987 [facility] [place] 1003(SNOMED Repository CT) 12/17/2011 [facility] Class/39356 ANTIBIOTICS) [facility] [place] 1003(SNOMED Repository CT) ENCOUNTERS ENCOUNTERS ADMIT/DISCHARGE ACCOUNT NUMBER ADMITTING ENCOUNTER LOCATION SOURCE CLASS 11/09/2018 [id number] Ambulatory [facility] ding:MTLAB Repository 09/05/2018 [id number] Ambulatory [facility] Repository 08/10/2018 [id number] Ambulatory [facility] ding:MTLAB Repository 07/27/2018 [id number] [facility] 07/27/2018/07/27/20 [id number] [facility] ing:AMBCAR[facility] General oom: EX01 [facility] Repository 06/13/2018 [id number] Ambulatory [facility] ding:MTLAB Repository 03/25/2018/03/29/20 [id number] Ambulatory [address] Repository 03/07/2018 [id number] Ambulatory [facility] ding:MTLAB Repository 01/04/2018/01/04/20 [id number] [facility] [address] ing:AMBCARMR General oom: EX02 [facility] Repository PAYERS PAYERS ENCOUNTER GUARANTOR PAYER SUBSCRIBER SOURCE 11/09/2018 CECE Randall Primary CECE Giordano [id number] Insurance:MEDICARE HONROTHDOB: [facility] PART A [facility] [id number] Number: Repository [id number]: [phone] [id number] [phone] () Date:2018-11-09 11/09/2018 Secondary CECE L Pasquale Insurance:CIGNA [facility] HONROTHDOB: Community SUPPLEMENT [id number] Repository Number: [id number] Date:1702-91-28EUIGJY AN FDC [address] [place] [phone]: 11/09/2018 Tertiary NOT GIVENUNK [place] Insurance:SELF PAY [facility] Number: Effective Repository Date:2018-11-09 09/05/2018 Cece Randall Primary Cece Randall [facility] HonrothDOB: Insurance:MedicarePol HonrothDOB: System [id number] icy Number: Effective [id number] Date:2013-11-29 [place], [place] [address]Ivm: (HP) 09/05/2018 Secondary Cece [facility] Insurance:MedicarePol HonrothDOB: System icy Number: Effective [id number] Repository Date:2013-11-29 09/05/2018 Tertiary Cece [facility] Insurance:CignaPolicy HonrothDOB: System Number: Effective [id number] Repository Date: 08/10/2018 CECE Randall Primary CECE Giordano [id number] Insurance:MEDICARE HONROTHDOB: Community COOK PART A [facility] [id number] Number: Repository [id number]: [phone] [id number] [phone] (HP) Date:2018-08-10 08/10/2018 Secondary CECE Randall [place] Insurance:CIGNA MCR HONROTHDOB: Community SUPPLEMENT [id number] Repository Number: [id number] Date:8547-48-50GQQOWF AN FDC [address] [address], [place] [address]QZ: 08/10/2018 Tertiary NOT GIVENUNK [place] Insurance:[facility]LF [facility] Number: Effective Repository Date:2018-08-10 06/13/2018 Cece Randall Primary Cece Giordano [id number] Insurance:MEDICARE HonrothDOB: Community Cook PART A [facility] [id number] [place] Number: Repository [id number]: [phone] [id number] [phone] (HP) Date:2018-06-13 06/13/2018 Secondary Cece Randall [place] Insurance:CIGNA MCR HonrothDOB: Community SUPPLEMENT [id number] Repository Number: [id number] Date:6317-58-74GRETNR AN FDC [place] [address] [address], [place] [address]KF: 06/13/2018 Tertiary NOT GIVENUNK [place] Insurance:SELF PAY [facility] Number: Effective Repository Date:2018-06-13 03/07/2018 Cece Randall Primary Cece Giordano [id number] Insurance:MEDICARE HonrothDOB: Community Cook PART A BPolicy [id number] [place] Number: Repository [id number]: [phone] [id number] [phone] () Date:2018-03-07 03/07/2018 Secondary Cece Giordano Insurance:CIGNA MCR HonrothDOB: Community SUPPLEMENT [id number] Repository Number: [id number] Date:[id number] AN FDC [place] [address] [address], [place] [address]UG: 03/07/2018 Tertiary NOT GIVENAKOSUA Giordano Insurance:SELF PAY [facility] Number: Effective Repository Date:2018-03-07
== END ==
PROVIDERS: Family Provider Family Medicine; PCP Family Medicine; Referring Provider Internal Medicine Rheumatology; Visit Provider Internal Medicine Rheumatology
DX: M06.4 Inflammatory polyarthropathy (principal); M35.1 Other overlap syndromes; M18.12 Unilateral primary osteoarthritis of first carpometacarpal joint, left hand; M17.0 Bilateral primary osteoarthritis of knee; M21.40 Flat foot [pes planus] (acquired), unspecified foot; K21.9 Gastro-esophageal reflux disease without esophagitis; I10 Essential (primary) hypertension; Z79.899 Other long term (current) drug therapy; F41.9 Anxiety disorder, unspecified; E03.9 Hypothyroidism, unspecified; I48.92 Unspecified atrial flutter; M18.9 Osteoarthritis of first carpometacarpal joint, unspecified
CPT/HCPCS: 36415; 80053; 85025

== ENCOUNTER → 2019-02-13 10:01 | Outpatient (CLI) | payer MEDICARE, OTHER, SELFPAY ==
[2019-02-13 12:36] LABS: Absolute Lymphocyte Count 1.12 X10^3/ul (0.83-4.51); Absolute Neutrophil Count 3.7 X10^3/uL (2.0-7.7); Basophil# 0.05 X10^3/uL; Basophil% 0.8 % (0-1); Eosinophil# 0.23 X10^3/uL; Eosinophils% 3.8 % (0-5); Hematocrit 44.5 % (37-47); Hemoglobin 14.4 g/dl (12.0-15.0); Lymphocyte # 1.12 X10^3/ul (4.0); Lymphocyte % 18.4 % (19-41); Mean Corp Hgb Conc 32.4 g/gl (32-36); Mean Corpuscular Hgb 30.8 pg (27.0-32.0); Mean Corpuscular Volume 95.1 fL (81-99); Mean Platelet Vol. 10.9 fl (6.2-12.0); Monocyte# 1.04 X10^3/uL; Neutrophil # 3.65 X10^3/uL (2.7-7.7); Neutrophil % 59.8 % (47-70); Platelet Count 273 K/mm3 (150-450); RBC Distribution Width CV 14.9 % (11.6-14.6); Red Blood Count 4.68 M/mm3 (4.2-5.4); White Blood Count 6.1 K/mm3 (4.4-11.0)
[2019-02-13 12:43] LABS: AST(SGOT) 17 U/L (15-37); Alanine Aminotransfer ALT/SGPT 21 U/L (13-56); Albumin, Serum 3.8 g/dL (3.2-5.0); Alkaline Phosphatase 66 U/L (45-117); Anion Gap 5 (5-15); BUN 15 mg/dL (7-18); BUN/Creat Ratio 12.7 RATIO (10-20); Chloride 106 mmol/L (98-107); Creatinine, Serum 1.18 mg/dL (0.55-1.02); EST Glomerular Filtration Rate 48 mL/min (>60); Est Glom Filt Rate - Afr Amer 58 mL/min (>60); Globulin 3.9 g/dL (2.2-4.2); Glucose 97 mg/dL (74-106); Potassium 4.2 mmol/L (3.5-5.1); Protein, Total 7.7 g/dL (6.4-8.2); Sodium Level 140 mmol/L (136-145)
[2019-02-13 12:52] LABS: POSITIVE COUNT NO; POSITIVE DIFFERENTIAL NO; POSITIVE MORPHOLOGY NO
== END ==
PROVIDERS: Family Provider Family Medicine; PCP Family Medicine; Referring Provider Internal Medicine Rheumatology; Visit Provider Internal Medicine Rheumatology
DX: M06.4 Inflammatory polyarthropathy (principal); M35.1 Other overlap syndromes; M18.12 Unilateral primary osteoarthritis of first carpometacarpal joint, left hand; M17.0 Bilateral primary osteoarthritis of knee; M21.40 Flat foot [pes planus] (acquired), unspecified foot; I10 Essential (primary) hypertension; K21.9 Gastro-esophageal reflux disease without esophagitis; F41.9 Anxiety disorder, unspecified; E03.9 Hypothyroidism, unspecified; I48.92 Unspecified atrial flutter; M18.9 Osteoarthritis of first carpometacarpal joint, unspecified; Z79.899 Other long term (current) drug therapy
CPT/HCPCS: 36415; 80053; 85025

== ENCOUNTER → 2019-03-20 | Outpatient (CLI) | payer MEDICARE, OTHER, SELFPAY ==
[2019-03-20 12:28] LABS: Absolute Lymphocyte Count 1.01 X10^3/ul (0.83-4.51); Absolute Neutrophil Count 3.9 X10^3/uL (2.0-7.7); Basophil# 0.06 X10^3/uL; Eosinophils% 3.3 % (0-5); Hematocrit 42.8 % (37-47); Hemoglobin 14.1 g/dl (12.0-15.0); Lymphocyte # 1.01 X10^3/ul (4.0); Lymphocyte % 16.9 % (19-41); Mean Corp Hgb Conc 32.9 g/gl (32-36); Mean Corpuscular Hgb 30.3 pg (27.0-32.0); Mean Platelet Vol. 10.4 fl (6.2-12.0); Monocyte# 0.84 X10^3/uL; Neutrophil # 3.87 X10^3/uL (2.7-7.7); Neutrophil % 64.6 % (47-70); Platelet Count 294 K/mm3 (150-450); RBC Distribution Width CV 14.7 % (11.6-14.6); RBC Distribution Width SD 49.6 fl (35.1-43.9); Red Blood Count 4.65 M/mm3 (4.2-5.4)
[2019-03-20 12:31] LABS: POSITIVE COUNT NO; POSITIVE DIFFERENTIAL NO; POSITIVE MORPHOLOGY NO
[2019-03-20 12:40] LABS: ALB/GLOB Ratio 1.1 RATIO (0.9-2.4); AST(SGOT) 15 U/L (15-37); Alanine Aminotransfer ALT/SGPT 20 U/L (13-56); Albumin, Serum 3.9 g/dL (3.2-5.0); Alkaline Phosphatase 67 U/L (45-117); Anion Gap 4 (5-15); BUN 14 mg/dL (7-18); BUN/Creat Ratio 12.5 RATIO (10-20); Chloride 105 mmol/L (98-107); Creatinine, Serum 1.12 mg/dL (0.55-1.02); EST Glomerular Filtration Rate 51 mL/min (>60); Est Glom Filt Rate - Afr Amer 62 mL/min (>60); Globulin 3.5 g/dL (2.2-4.2); Glucose 92 mg/dL (74-106); Potassium 4.3 mmol/L (3.5-5.1); Protein, Total 7.4 g/dL (6.4-8.2); Sodium Level 138 mmol/L (136-145)
== END | disposition home or self-care (01) ==
LOC: MTLAB 10:12
PROVIDERS: Family Provider Family Medicine; PCP Family Medicine; Referring Provider Internal Medicine Rheumatology; Visit Provider Internal Medicine Rheumatology
DX: M06.4 Inflammatory polyarthropathy (principal); M35.1 Other overlap syndromes; M18.12 Unilateral primary osteoarthritis of first carpometacarpal joint, left hand; M17.0 Bilateral primary osteoarthritis of knee; M21.40 Flat foot [pes planus] (acquired), unspecified foot; K21.9 Gastro-esophageal reflux disease without esophagitis; I10 Essential (primary) hypertension; F41.9 Anxiety disorder, unspecified; E03.9 Hypothyroidism, unspecified; I48.92 Unspecified atrial flutter; M18.9 Osteoarthritis of first carpometacarpal joint, unspecified; Z79.899 Other long term (current) drug therapy
CPT/HCPCS: 36415; 80053; 85025

== ENCOUNTER → 2019-06-12 | Outpatient (CLI) | payer MEDICARE, OTHER, SELFPAY ==
[2019-06-12 13:52] LABS: Absolute Lymphocyte Count 1.15 X10^3/ul (0.83-4.51); Absolute Neutrophil Count 3.3 X10^3/uL (2.0-7.7); Basophil# 0.03 X10^3/uL; Basophil% 0.6 % (0-1); Eosinophil# 0.18 X10^3/uL; Eosinophils% 3.4 % (0-5); Hematocrit 43.9 % (37-47); Hemoglobin 14.4 g/dl (12.0-15.0); Lymphocyte # 1.15 X10^3/ul (4.0); Lymphocyte % 21.6 % (19-41); Mean Corp Hgb Conc 32.8 g/gl (32-36); Mean Corpuscular Hgb 30.4 pg (27.0-32.0); Mean Corpuscular Volume 92.6 fL (81-99); Mean Platelet Vol. 11.1 fl (6.2-12.0); Monocyte# 0.67 X10^3/uL; Monocyte% 12.6 % (0-10); Neutrophil # 3.28 X10^3/uL (2.7-7.7); Neutrophil % 61.6 % (47-70); Platelet Count 276 K/mm3 (150-450); RBC Distribution Width CV 14.9 % (11.6-14.6); RBC Distribution Width SD 49.3 fl (35.1-43.9); Red Blood Count 4.74 M/mm3 (4.2-5.4); White Blood Count 5.3 K/mm3 (4.4-11.0)
[2019-06-12 13:58] LABS: POSITIVE COUNT NO; POSITIVE DIFFERENTIAL NO; POSITIVE MORPHOLOGY NO
[2019-06-12 14:07] LABS: AST(SGOT) 25 U/L (15-37); Alanine Aminotransfer ALT/SGPT 32 U/L (13-56); Albumin, Serum 3.8 g/dL (3.2-5.0); Alkaline Phosphatase 59 U/L (45-117); Anion Gap 6 (5-15); BUN 14 mg/dL (7-18); BUN/Creat Ratio 13.9 RATIO (10-20); Calcium,Total 8.9 mg/dL (8.5-10.1); Chloride 106 mmol/L (98-107); Creatinine, Serum 1.01 mg/dL (0.55-1.02); EST Glomerular Filtration Rate 58 mL/min (>60); Est Glom Filt Rate - Afr Amer 70 mL/min (>60); Globulin 3.7 g/dL (2.2-4.2); Glucose 100 mg/dL (74-106); Potassium 4.2 mmol/L (3.5-5.1); Protein, Total 7.5 g/dL (6.4-8.2); Sodium Level 140 mmol/L (136-145)
== END | disposition home or self-care (01) ==
LOC: MTLAB 11:34
PROVIDERS: Family Provider Family Medicine; PCP Family Medicine; Referring Provider Internal Medicine Rheumatology; Visit Provider Internal Medicine Rheumatology
DX: M06.4 Inflammatory polyarthropathy (principal); M35.1 Other overlap syndromes; M18.12 Unilateral primary osteoarthritis of first carpometacarpal joint, left hand; M17.0 Bilateral primary osteoarthritis of knee; M21.40 Flat foot [pes planus] (acquired), unspecified foot; K21.9 Gastro-esophageal reflux disease without esophagitis; I10 Essential (primary) hypertension; E03.9 Hypothyroidism, unspecified; I48.92 Unspecified atrial flutter; M18.9 Osteoarthritis of first carpometacarpal joint, unspecified; Z79.899 Other long term (current) drug therapy
CPT/HCPCS: 36415; 80053; 85025

== ENCOUNTER → 2019-09-11 | Outpatient (CLI) | payer MEDICARE, OTHER, SELFPAY ==
[2019-09-11 12:31] LABS: Absolute Lymphocyte Count 0.88 X10^3/uL (0.83-4.51); Basophil# 0.07 X10^3/uL; Basophil% 1.5 % (0-1); Eosinophil# 0.14 X10^3/uL; Eosinophils% 2.9 % (0-5); Hemoglobin 13.3 g/dL (12.0-15.0); Lymphocyte # 0.88 X10^3/ul (4.0); Lymphocyte % 18.5 % (19-41); Mean Corp Hgb Conc 32.4 g/dL (32-36); Mean Corpuscular Hgb 31.4 pg (27.0-32.0); Mean Corpuscular Volume 96.7 fL (81-99); Monocyte# 0.66 X10^3/uL; Monocyte% 13.9 % (0-10); NRBC Flagged by Analyzer 0 % (0-5); Neutrophil # 2.98 X10^3/uL (2.7-7.7); Neutrophil % 62.8 % (47-70); Platelet Count 269 K/mm3 (150-450); RBC Distribution Width CV 14.6 % (11.6-14.6); RBC Distribution Width SD 51.6 fl (35.1-43.9); Red Blood Count 4.24 M/mm3 (4.2-5.4); White Blood Count 4.8 K/mm3 (4.4-11.0)
[2019-09-11 12:52] LABS: ALB/GLOB Ratio 1.1 RATIO (0.9-2.4); AST(SGOT) 21 U/L (15-37); Alanine Aminotransfer ALT/SGPT 22 U/L (13-56); Albumin, Serum 3.7 g/dL (3.2-5.0); Alkaline Phosphatase 61 U/L (45-117); Anion Gap 6 (5-15); BUN 16 mg/dL (7-18); BUN/Creat Ratio 15.8 RATIO (10-20); Calcium,Total 9.1 mg/dL (8.5-10.1); Chloride 108 mmol/L (98-107); Creatinine, Serum 1.01 mg/dL (0.55-1.02); EST Glomerular Filtration Rate 58 mL/min (>60); Est Glom Filt Rate - Afr Amer 70 mL/min (>60); Globulin 3.5 g/dL (2.2-4.2); Glucose 100 mg/dL (74-106); Potassium 4.4 mmol/L (3.5-5.1); Protein, Total 7.2 g/dL (6.4-8.2); Sodium Level 140 mmol/L (136-145)
== END | disposition home or self-care (01) ==
LOC: MTLAB 09:47
PROVIDERS: Family Provider Family Medicine; PCP Family Medicine; Referring Provider Internal Medicine Rheumatology; Visit Provider Internal Medicine Rheumatology
DX: M06.4 Inflammatory polyarthropathy (principal); M35.1 Other overlap syndromes; M18.12 Unilateral primary osteoarthritis of first carpometacarpal joint, left hand; M17.0 Bilateral primary osteoarthritis of knee; M21.40 Flat foot [pes planus] (acquired), unspecified foot; K21.9 Gastro-esophageal reflux disease without esophagitis; I10 Essential (primary) hypertension; F41.9 Anxiety disorder, unspecified; E03.9 Hypothyroidism, unspecified; I48.92 Unspecified atrial flutter; M18.9 Osteoarthritis of first carpometacarpal joint, unspecified; Z79.899 Other long term (current) drug therapy
CPT/HCPCS: 36415; 80053; 85025

== ENCOUNTER → 2021-01-15 08:02 | Outpatient (CLI) | payer MEDICARE, OTHER, SELFPAY | PROVIDERS: PCP Family Medicine; Referring Provider Internal Medicine Hematology & Oncology; Visit Provider Internal Medicine Hematology & Oncology | DX: D59.10 Autoimmune hemolytic anemia, unspecified (principal) | CPT/HCPCS: 94642 ==

== ENCOUNTER → 2021-02-12 09:49 | Outpatient (CLI) | payer MEDICARE, OTHER, SELFPAY | PROVIDERS: PCP Family Medicine; Referring Provider Internal Medicine Hematology & Oncology; Visit Provider Internal Medicine Hematology & Oncology | DX: D59.10 Autoimmune hemolytic anemia, unspecified (principal) | CPT/HCPCS: 94642 ==

== ENCOUNTER → 2021-03-12 12:47 | Outpatient (CLI) | payer MEDICARE, OTHER, SELFPAY | PROVIDERS: PCP Family Medicine; Referring Provider Internal Medicine Hematology & Oncology; Visit Provider Internal Medicine Hematology & Oncology | DX: D59.10 Autoimmune hemolytic anemia, unspecified (principal) | CPT/HCPCS: 94642 ==